=== PATIENT | male | born 2000 | race Caucasian/White ===

== ENCOUNTER 2022-03-05 13:00 | Emergency (ER) | payer BC ==
[~2022-03-05] VITALS: Ht 177.8 cm; Wt 72.7 kg
[2022-03-05 13:06] VITALS: BP 117/90; PULSE 64; TEMP 97.1
[2022-03-05] MEDS ORDERED: ADDERALL XR 10M10 MG (13:09)
[2022-03-05] MEDS ORDERED: DIFLUCAN 100MG100 MG PO (13:28)
== END 2022-03-05 13:40 | disposition home or self-care (01) ==
LOC: COL.ER 13:00
DX: B36.0 Pityriasis versicolor (principal); Z28.310 Unvaccinated for COVID-19